=== PATIENT | female | born 1965 | race Caucasian/White ===

== ENCOUNTER 2016-11-22 16:15 | Emergency (ER) | payer OTHER ==
--- NOTE | 2016-11-22 16:42 | UCPHY ---
H & P Time Seen by Provider: 11/22/16 16:39 Patient Type: New HPI/ROS: HPI: 50-year-old female presents to urgent care with chief concern chest congestion, nasal congestion, sore throat. Reports aggravated eczema symptoms on her right hand. Denies fever, chills, myalgias, dysphagia, facial or tooth pain, shortness of breath, chest pain, abdominal discomfort, nausea, vomiting, back pain. Has been using [id number] cough medicine with minimal improvement. No history of asthma or pneumonia. Did not get a flu shot this year. Moved here recently. ROS:10 point review of systems is negative other than as stated in HPI Physical Exam: Vital signs stable, reviewed by me General: Awake, alert, calm, cooperative. No acute distress. Head: Atraumatic. EENT: Conjuctiva mildly injected. TMs intact, without redness. Minimal bulging present, landmarks visible. Nasal mucosa is erythematous with moderate clear discharge. Pharynx mildly erythematous. Uvula midline. No tonsillar abscess or exudates. No frontal or maxillary tenderness to percussion. Respiratory: Breathing unlabored. Lungs clear to auscultation bilaterally. No wheezing or rales, No adventitious sounds. CV: Heart rate regular. S1-S2 present. No murmur. GI: Abdomen soft, nontender. Bowel sounds positive x4 quadrants. : Deferred Skin: Warm, dry, intact. Scaly lesions right hand, palmar surface. No cellulitis. No induration or fluctuance. Capillary refill brisk. Musculoskeletal: Full ROM all extremities. Neuro: Alert oriented x3. Strength equal in all 4 extremities. Constitutional: Initial Vital Signs Temperature (C) 36.6 C 11/22/16 16:30 Heart Rate 92 11/22/16 16:30 Respiratory Rate 18 11/22/16 16:30 Blood Pressure 123/91 H 11/22/16 16:30 O2 Sat (%) 95 11/22/16 16:30 O2 Delivery Mode Room Air Allergies/Adverse Reactions: No Known Allergies Allergy (Unverified 11/22/16 16:45) Home Medications: Medication Instructions Recorded HYDROcodone/HOMATROPINE HYCODA 5 - 10 ml PO HS PRN #60 ml 11/22/16 [Hycodan Syrup (*)] Lexapro 11/22/16 Triamcinolone 0.1% [Triamcinolone 80 gm TP BID #1 cream 11/22/16 0.1% Cream (*)] Wellbutrin 100mg (*) 11/22/16 Medical Decision Making ED Course/Re-evaluation: 50-year-old female presents to urgent care with URI symptoms. She has no fever or myalgias. Lungs are clear to auscultation bilaterally. Vitals are stable. She distally requests refill of medication for her eczema. There eczema lesions on her right hand, palmar surface. No infection. Recently moved here. Has no primary care provider. I have referred her to primary care. Differential Diagnosis: Viral URI, influenza, pneumonia Departure - Departure Disposition: Home, Routine, Self-Care Clinical Impression: Viral upper respiratory infection Eczema Qualifiers: Qualifier Code: (L30.9) Dermatitis, unspecified Condition: Good Instructions: Upper Respiratory Infection (ED), Eczema (ED) Additional Instructions: Plan: Use the triamcinolone cream to eczema twice daily, be sure and moisturize during the day Drink plenty of fluids. Rest. You may use over the counter cough and cold medicine for symptom relief. Hycodan cough syrup at bedtime only as directed for difficulty sleeping due to cough--never drink or drive while taking, and do not use with other sedating medications like lorazepam You may use Tylenol or Ibuprofen for fever and pain control. Use Flonase (nasal steroid) 2 puffs in each nostril first thing in the morning while ear and nasal symptoms persist. Use [id number] Zyrtec daily while ear symptoms persist Use saline irrigation to each nostril twice daily-morning and evening. For sore throat, gargle with warm salt water three times daily. Return to Urgent Care or ER if you develop fever, shortness of breath, chest pain, difficulty breathing, or difficulty swallowing. Follow up with primary care provider as directed--tell the office you are an " ER follow up appointment when you call. Return here promptly for worsening symptoms such as facial/tooth pain, chest pain, shortness of breath, unremitting fever, nausea, vomiting, difficulty swallowing. Referrals: NONE *PRIMARY CARE P,. [Primary Care Provider] - As per Instructions Miranda Mccall, ELECTRONEURODIAGNOSTIC TECHNOLOGIST [Certified Nurse Practioner] - As per Instructions Stand Alone Forms: Work Excuse Prescriptions: HYDROcodone/HOMATROPINE HYCODA [Hycodan Syrup (*)] 5 - 10 ml PO HS PRN #60 ml PRN Reason: severe cough preventing sleep Triamcinolone 0.1% [Triamcinolone 0.1% Cream (*)] 80 gm TP BID #1 cream - PQRS PQRS Measurement: Not applicable
[2016-11-22 16:50] VITALS: BP 123/91; PULSE 92; RESP 18; TEMP 97.9; O2SAT 95
== END 2016-11-22 17:07 | disposition home or self-care (01) ==
LOC: CED 16:15
DX: J06.9 Acute upper respiratory infection, unspecified (principal); L30.9 Dermatitis, unspecified
CPT/HCPCS: 99203-PO; G0463-PO